=== PATIENT | male | born 1980 | race Native Hawaiian/Other Pacific Islander ===

== ENCOUNTER 2021-04-16 09:51 | Inpatient (IN) | payer MEDICAID, OTHER ==
[~2021-04-16] VITALS: Ht 170.2 cm; Wt 77.1 kg
--- NOTE | 2021-04-16 10:54 | NUR ---
SEEN AND EXAMINED BY .
--- NOTE | 2021-04-16 11:08 | NUR ---
BIB SELF C/O SOB, LOW O2 SAT 67% ON RA AND FEVER X 7 DAYS, COVID +. PT AAOX4, DENIES N/V/D. PT SEEN & EVAL'D BY DR. HAGEN. PLACED ON PLASTIC SURGERY ASSISTANT, SR. PLACED ON O2 NR 100%. WILL CONT TO MONITOR.
--- NOTE | 2021-04-16 11:40 | NUR ---
MOVE SHEET SUBMITTED AND CALLED FOR TELE BED.
[2021-04-16 11:55] LABS: BASOPHILS % (AUTO) 0.1 % (0.0-2.0); EOSINOPHILS % (AUTO) 0.1 % (0.0-6.0); HEMATOCRIT 46 % (39-51); HEMOGLOBIN 14.5 g/dL (13.5-17.5); LYMPHOCYTES # (AUTO) 0.4 K/uL (0.8-4.8); LYMPHOCYTES % (AUTO) 8.3 % (20.0-44.0); MEAN CORPUSCULAR HGB CONC 32 g/dl (31.0-36.0); MEAN CORPUSCULAR VOLUME 64 fL (80-96); MONOCYTES # (AUTO) 0.2 K/uL (0.1-1.30); MONOCYTES % (AUTO) 3.6 % (2.0-12.0); NEUTROPHILS # (AUTO) 4.7 K/uL (1.8-8.9); NEUTROPHILS % (AUTO) 87.9 % (43.0-81.0); PLATELET COUNT (AUTO) 200 K/uL (150-450); RED BLOOD CELL COUNT(AUTO) 7.25 MIL/uL (4.5-6.0); WHITE BLOOD COUNT (AUTO) 5.3 K/uL (4.3-11.0)
[2021-04-16] MEDS ORDERED: DEXAMETHASONE SOD PHOSPHATE 10 MG/ML VIAL IV ONE (12:00)
[2021-04-16 12:16] LABS: D-DIMER 0.9 mg/L(FEU (0.17-0.50)
[2021-04-16 12:21] LABS: CREATINE KINASE, TOTAL 266 U/L (39-308)
[2021-04-16] MEDS ORDERED: DEXAMETHASONE SOD PHOSPHATE 10 MG/ML VIAL ONE (12:29)
[2021-04-16 13:06] LABS: CALCIUM, SERUM 8.3 mg/dL (8.5-10.1); CARBON DIOXIDE 26 mmol/L (21-32); CHLORIDE 91 mmol/L (98-107); GLUCOSE 141 mg/dL (74-106); POTASSIUM 3.7 mmol/L (3.5-5.1); SODIUM SERUM 129 mmol/L (136-145); UREA NITROGEN, BLOOD 14 mg/dL (7-18)
--- NOTE | 2021-04-16 13:14 | NUR ---
[facility] CALLED CLINICAL SPECIALTY REP PAGED.
[2021-04-16 13:18] LABS: ALANINE AMINOTRANSFERASE 112 U/L (12-78); ALKALINE PHOSPHATASE 236 U/L (46-116); ASPARTATE AMINOTRANSFERASE 95 U/L (15-37); BILIRUBIN,TOTAL 0.7 mg/dL (0.2-1.0); TOTAL PROTEIN, SERUM 7.3 g/dL (6.4-8.2)
[2021-04-16] MEDS: CEFTRIAXONE 1 G in IV D5W 50 ML IV SCH ×2 (13:50→16:00)
--- NOTE | 2021-04-16 13:54 | NUR ---
PT AAOX4, VSS. RR EVEN & UNLABORED. DENIES CP, SOB, DIZZINESS, N/V AT THIS TIME. WILL CONT TO MONITOR.
[2021-04-16] MEDS ORDERED: ONDANSETRON 4 MG TAB.RAPDIS SL PRN (14:00)
[2021-04-16] MEDS ORDERED: ACETAMINOPHEN 650 MG/SUPP.RECT RC PRN (14:00)
[2021-04-16] MEDS ORDERED: ALBUTEROL SULFATE 8 GM HFA.AER.AD IH PRN (14:00)
[2021-04-16] MEDS: AZITHROMYCIN 500 MG in IV D5W 250 ML IV SCH (14:37)
[2021-04-16] MEDS ORDERED: CEFTRIAXONE 1GM BAG (ER ONLY) 50 ML IV ONE (15:08)
--- NOTE | 2021-04-16 16:30 | NUR ---
PT RESTING WELL, NAD NOTED AT THIS TIME. WILL CONT TO MONITOR.
[2021-04-16] MEDS ORDERED: APIXABAN 5 MG TABLET PO SCH (17:00)
--- NOTE | 2021-04-16 17:46 | NUR ---
COVID POSITIVE PER LAB
[2021-04-16] MEDS ORDERED: APIXABAN 5 MG TABLET ONE (17:57)
--- NOTE | 2021-04-16 18:29 | NUR ---
PT RR EVEN & UNLABORED. DENIES CP, SOB, DIZZINESS, N/V AT THIS TIME. PT STS " I FEEL BETTER". WILL CONT TO MONITOR..
--- NOTE | 2021-04-16 19:02 | NUR ---
GOT BED 112-1 AFTER 1929
--- NOTE | 2021-04-16 19:58 | NUR ---
RN NOTES RECEIVED REPORT FROM ER NURSE BELIA
[2021-04-16 20:10] VITALS: BP 118/81
--- NOTE | 2021-04-16 20:10 | NUR ---
ADMISSION NOTES ADMITTED A 40Y/O MALE PATIENT FROM ER VIA [facility] WITH CHIEF COMPLAIN OF WORSENING SOB. RAPID TEST POSITIVE, PCR PENDING. PATIENT A/O X4 ABLE TO MAKE NEEDS KNOWN. WITH IV ACCESS AT LAC# 20 PATENT FLUSHES WELL. VITAL SIGNS TAKEN AND RECORDED AFEBRILE. TRANSFER TO BED SAFELY. ON NO REBREATHER MASK AT 15LPM TOLERATING WELL SATING 93%. COMPLETE BODY ASSESSMENT DONE. SKIN INTACT. ALL BELONGINGS CHECKED AND RECORDED. ALL SAFETY MEASURES IN PLACE AT ALL TIMES. BED IN LOWEST POSITION, LOCKED. BED ALARM ARMED. CALL LIGHT WITH IN REACH. CONTINUE TO MONITOR.
--- NOTE | 2021-04-16 20:20 | NUR ---
REPORT GIVEN TO HAO PHIPPS FOR JOANNE
[2021-04-16 20:28] LABS: ABG BASE EXCESS 1.2 mmol/L; ABG OXYGEN SATURATION 91.9 % (92.0-98.5); ABG PCO2 39.4 mmHg (35.0-45.0); ABG PH 7.429 (7.350-7.450); ABG PO2 62.1 mmHg (75.0-100.0); AaDO2 611.5 mmHg; COHb 1.2 % (0.5-1.5); MetHb 0.3 % (0.0-1.5); O2Hb 90.5 % (94.0-97.0); SITE, ABG Left Radial; VENT MODE, BG 15L NRB
--- NOTE | 2021-04-16 20:56 | NUR ---
RN NOTES RECEIVED REPORT TO ER NURSE BELIA
--- NOTE | 2021-04-16 21:30 | NUR ---
RN NOTES RESIDENT COMPLAIN THAT THE HIGH FLOW OXYGEN IS TO STRONG HE CANNOT TOLERATED IT, NOTIFIED RT JENS, RT REDUCED THE SETTING 30LPM AND SATTING AT 95%. CONTINUE TO MONITOR
--- NOTE | 2021-04-16 23:00 | NUR ---
RN NOTES PATIENT COMPLAINT THAT HE CANNOT SLEEP, HEADER MACHINE OPERATOR RHYS MADE AWARE WITH NEW ORDER TEMAZEPAM 7.5 MG, PO HS ONE TIME ONLY NOTED AND CARRIED OUT.
--- NOTE | 2021-04-16 23:17 | NUR ---
RN NOTES TEMAZEPAM 7.5MG GIVEN
[2021-04-16] MEDS ORDERED: TEMAZEPAM 7.5 MG CAPSULE PO ONE (23:30)
[2021-04-17] VITALS: BP 126/84
--- NOTE | 2021-04-17 00:10 | NUR ---
RN NOTES PATIENT STILL COMPLAINING ABOUT THE HI FLOW OXYGEN, PER PATIENT HIS LUNGS IS HURTING WHEN USING THE HI FLOW OXYGEN AND IT FEELS LIKE IT WILL EXPLODE, HE REQUESTING TO HAVE THE NON REBREATHER MASK INSTEAD, HE SAID HE IS DOING OK EARLIER WITH NON REBREATHER MASK, EXPLAINED RISK AND BENEFITS STILL WANT TO CHANGE TO NON REBREATHER MASK, NOTIFIED DIRECTOR MOBILE RHYS, PER DIRECTOR MOBILE OK TO CHANGE TO NON RE BREATHER MASK. RT. MADE AWARE AND CHANGE THE HI FLOW TO NON REBREATHER MASK. WILL CONTINUE TO MONITOR.
[2021-04-17] MEDS: GUAIFENESIN/CODEINE 10 ML UDC PO PRN ×2 (01:05→06:09)
--- NOTE | 2021-04-17 01:10 | NUR ---
RN NOTES ROBITUSSIN WITH CODEINE GIVEN
[2021-04-17 04:00] VITALS: BP 121/80
[2021-04-17] MEDS: ACETAMINOPHEN 325 MG TABLET PO PRN ×2 (05:23→16:48)
--- NOTE | 2021-04-17 05:26 | NUR ---
RN NOTES PATIENT NOTED WITH TEMPERATURE OF 100.4 FAHRENHEIT, COOLING MEASURE PROVIDED, DENIES ANY PAIN, ACETAMINOPHEN GIVEN PER MD'S ORDERED. WILL CONTINUE TO MONITOR
--- NOTE | 2021-04-17 06:13 | NUR ---
RN NOTES ROBITUSSIN WITH CODEINE GIVEN
--- NOTE | 2021-04-17 06:30 | NUR ---
RN NOTES TEMPERATURE RECHECKED AND OBTAINED 98.5 FAHRENHEIT. WILL CONTINUE TO MONITOR
[2021-04-17] MEDS ORDERED: DEXT20TA6 PO (06:52)
[2021-04-17 07:08] LABS: BASOPHILS % (AUTO) 0.1 % (0.0-2.0); HEMATOCRIT 42 % (39-51); HEMOGLOBIN 13.7 g/dL (13.5-17.5); LYMPHOCYTES # (AUTO) 0.5 K/uL (0.8-4.8); LYMPHOCYTES % (AUTO) 9.8 % (20.0-44.0); MEAN CORPUSCULAR HGB CONC 32 g/dl (31.0-36.0); MEAN CORPUSCULAR VOLUME 62 fL (80-96); MONOCYTES # (AUTO) 0.4 K/uL (0.1-1.30); NEUTROPHILS # (AUTO) 3.9 K/uL (1.8-8.9); NEUTROPHILS % (AUTO) 82.1 % (43.0-81.0); PLATELET COUNT (AUTO) 245 K/uL (150-450); RED BLOOD CELL COUNT(AUTO) 6.77 MIL/uL (4.5-6.0); WHITE BLOOD COUNT (AUTO) 4.7 K/uL (4.3-11.0)
--- NOTE | 2021-04-17 07:10 | NUR ---
RN OPENING NOTE RECEIVE REPORT FROM INSULATION ENGINEMAN NURSE. PATIENT IN STABLE CONDITION. WILL FOLLOW UP AM LABS AND DOCTORS ORDERS. PROPER ISOLATION IN PLACE. ALL SAFETY MEASURE IN PLACE. BED ON LOWEST POSITION WITH HO ELEVATED. CALL LIGHT WITHIN REACH. WILL CONTINUE TO MONITOR.
--- NOTE | 2021-04-17 07:15 | NUR ---
RN CLOSING NOTES PATIENT REMAIN STABLE THROUGH OUT THE SHIFT, ON NRB @15LPM, SATTING AT 95%. WITH IV ACCESS AT LAC# 20 PATENT FLUSHES WELL. ALL DUE MEDS GIVEN ORDERED.. ALL SAFETY MEASURES IN PLACE AT ALL TIMES. BED IN LOWEST POSITION, LOCKED. BED ALARM ARMED. CALL LIGHT WITH IN REACH. CONTINUE TO MONITOR.
[2021-04-17 08:00] VITALS: BP 125/76
[2021-04-17] MEDS: DEXAMETHASONE SOD PHOSPHATE 4 MG/ML VIAL IV SCH (08:07)
[2021-04-17] MEDS: APIXABAN 5 MG TABLET PO SCH ×2 (08:08→16:49)
[2021-04-17 08:47] LABS: ALBUMIN 2.6 g/dL (3.4-5.0); BILIRUBIN,TOTAL 0.4 mg/dL (0.2-1.0); CALCIUM, SERUM 7.9 mg/dL (8.5-10.1); CREATININE 0.8 mg/dL (0.6-1.3); POTASSIUM 4.2 mmol/L (3.5-5.1); TOTAL PROTEIN, SERUM 6.8 g/dL (6.4-8.2)
[2021-04-17] MEDS ORDERED: REMDESIVIR (CHARGED) 200 MG, *LOADING DOSE 1 EA in IV NS 0.9% 210 ML IV ONE (10:00)
[2021-04-17 10:29] LABS: C-REACTIVE PROTEIN 11.1 mg/dL (0.0-0.9)
[2021-04-17] MEDS: BENZONATATE 100 MG CAPSULE PO PRN (11:54)
[2021-04-17 12:00] VITALS: BP 125/76
[2021-04-17] MEDS: CEFTRIAXONE 1 G in IV D5W 50 ML IV SCH (13:50)
[2021-04-17] MEDS: AZITHROMYCIN 500 MG in IV D5W 250 ML IV SCH (14:37)
[2021-04-17 16:00] VITALS: BP 120/78
--- NOTE | 2021-04-17 18:53 | NUR ---
RN CLOSING NOTE PATIENT IN STABLE CONDITION. REMAIN ON NON-REBREATHER AT 15L/MIN O2 SAT 94% AND ABOVE AT REST. PERIOTIC CHEST PAIN AND COUGH. ROBITUSSIN WAS D/C AND TESSALON WAS ORDER IN ITS PLACE PER DR. WHITMAN. FAMILY WAS INFORMED REGARDING PATIENT CONDITION. PROPER ISOLATION PRECAUTION IN PLACE. ALL SAFETY MEASURE IN PLACE. BED ON LOWEST POSITION WITH HOB ELEVATED. CALL LIGHT WITHIN REACH. WILL CONTINUE TO MONITOR AND ENDORSED TO INSULATION MANAGER NURSE.
--- NOTE | 2021-04-17 19:15 | NUR ---
RN OPENING NOTES PATIENT RECEIVED ON BED ALERT AND VERBALLY RESPONSIVE, NO SHORTNESS OF BREATH NOTED, NOT IN DISTRESS, DENIES PAIN, ON NRB @15LPM, SATTING AT 95%. WITH IV ACCESS AT LAC# 20 PATENT FLUSHES WELL. ALL SAFETY MEASURES IN PLACE AT ALL TIMES. BED IN LOWEST POSITION, LOCKED. BED ALARM ARMED. CALL LIGHT WITH IN REACH. CONTINUE TO MONITOR.
[2021-04-17 20:00] VITALS: BP 110/58
--- NOTE | 2021-04-17 20:11 | NUR ---
RT pt sat 87% on nrb. pt states having sob. discussed with him about being placed back on hfnc, but pt does not want because he does not like the pressure. notified odessa montague rn. will continue to monitor pt.
--- NOTE | 2021-04-17 20:13 | NUR ---
RT pt sat 87% on nrb. pt states having tightness in chest. discussed with him about being placed back on hfnc, but pt does not want because he does not like the pressure. prefers to be on NRB notified saurav montague. will continue to monitor pt t/o shift.
--- NOTE | 2021-04-17 20:26 | NUR ---
RN NOTES PATIENT NOTED WITH OXYGEN SAT 88% ON NRB, DISCUSSED WITH THE PATIENT THAT HE NEEDS THE HI FLOW OXYGEN, EXPLAINED RISK AND BENEFITS, HE STILLS PREFERS THE NRB, STATING THAT IT HURTS HIS LUNG AND HE CAN'T TOLERATE IT. CHARGE NURSE AWARE AT BEDSIDE.
[2021-04-17] MEDS ORDERED: TEMAZEPAM 7.5 MG CAPSULE PO ONE (22:30)
[2021-04-18] VITALS (15 sets, daily range): BP systolic 120–144; BP diastolic 63–98
[2021-04-18] MEDS: ACETAMINOPHEN 325 MG TABLET PO PRN ×3 (06:21→22:25)
--- NOTE | 2021-04-18 07:26 | NUR ---
RN CLOSING NOTES NO SIGNIFICANT CHANGES THROUGH OUT THE SHIFT, NO SHORTNESS OF BREATH NOTED, NOT IN DISTRESS, DENIES PAIN, ON NRB @15LPM, SATTING AT 95%. WITH IV ACCESS AT LAC# 20 PATENT FLUSHES WELL. ALL DUE MEDS GIVEN ORDERED. ALL SAFETY MEASURES IN PLACE AT ALL TIMES. BED IN LOWEST POSITION, LOCKED. BED ALARM ARMED. CALL LIGHT WITH IN REACH. CONTINUE TO MONITOR.
--- NOTE | 2021-04-18 07:27 | NUR ---
PT IS AWAKE AND ALERT RECEIVED ON 15 LPM NON REBREATHER WITH 78% SPO2, PT ENCOURAGE TO USE HIGH FLOW BECAUSE PT. DOESN'T WANT TO USE HIGH FLOW. PT AGREED TO USE HIGH FLOW WITH PREVIOUS SETTINGS WITH 30 FLOW / 95% FIO2. Addendum: 04/18/21 at 0732 by NAGA BOYD RT Amended: Links added.
--- NOTE | 2021-04-18 07:37 | NUR ---
RN OPENING NOTE RECEIVED PATIENT A/O X 3 , ON NRB @30LPM, 02 SAT AT 95%. WITH IV ACCESS AT LAC# 20 PATENT FLUSHES WELL. NO CURRENT COMPLAINTS OF PAIN . ALL SAFETY MEASURES IN PLACE AT ALL TIMES. BED IN LOWEST POSITION, LOCKED. BED ALARM ARMED. CALL LIGHT WITH IN REACH.
[2021-04-18] MEDS: DEXAMETHASONE SOD PHOSPHATE 4 MG/ML VIAL IV SCH (08:55)
[2021-04-18] MEDS: APIXABAN 5 MG TABLET PO SCH ×2 (08:55→16:00)
[2021-04-18 09:12] LABS: ALBUMIN 2.7 g/dL (3.4-5.0); BILIRUBIN,DIRECT 0.2 mg/dL (0.0-0.2); BILIRUBIN,TOTAL 0.5 mg/dL (0.2-1.0); CALCIUM, SERUM 8.2 mg/dL (8.5-10.1); POTASSIUM 4.3 mmol/L (3.5-5.1); TOTAL PROTEIN, SERUM 7.1 g/dL (6.4-8.2)
[2021-04-18] MEDS ORDERED: REMDESIVIR (CHARGED) 100 MG in IV NS 0.9% 100 ML IV SCH (10:00)
[2021-04-18 10:27] LABS: ABG BASE EXCESS 4.2 mmol/L; ABG OXYGEN SATURATION 87.6 % (92.0-98.5); ABG PCO2 40.2 mmHg (35.0-45.0); ABG PH 7.464 (7.350-7.450); ABG PO2 51.2 mmHg (75.0-100.0); AaDO2 585.5 mmHg; COHb 0.7 % (0.5-1.5); MetHb 0.1 % (0.0-1.5); O2Hb 86.9 % (94.0-97.0); SITE, ABG Right Brachial; VENT MODE, BG high flow 30 L/ 95%
[2021-04-18 10:33] LABS: BASOPHILS % (AUTO) 0.1 % (0.0-2.0); HEMATOCRIT 45 % (39-51); HEMOGLOBIN 14.6 g/dL (13.5-17.5); LYMPHOCYTES # (AUTO) 0.6 K/uL (0.8-4.8); LYMPHOCYTES % (AUTO) 5.8 % (20.0-44.0); MEAN CORPUSCULAR HGB CONC 33 g/dl (31.0-36.0); MEAN CORPUSCULAR VOLUME 63 fL (80-96); MONOCYTES % (AUTO) 10.2 % (2.0-12.0); NEUTROPHILS % (AUTO) 83.9 % (43.0-81.0); RED BLOOD CELL COUNT(AUTO) 7.09 MIL/uL (4.5-6.0); WHITE BLOOD COUNT (AUTO) 9.5 K/uL (4.3-11.0)
--- NOTE | 2021-04-18 10:42 | NUR ---
high flow parameters below chaged per dr. null: 40 L flow 100% fio2 charge nurse aware on changes made. Addendum: 04/18/21 at 1044 by NAGA BOYD RT Amended: Links added.
--- NOTE | 2021-04-18 13:22 | NUR ---
RN NOTES; SPOKE WITH PT SISTER CARMEN [phone]. CARMEN IS AN RN AND WILL BE THE POINT PERSON FOR GIVING PT UPDATE. PT PCP IS DR. LILIAM ESPARZA [phone]. INFORMED DR. AMOS. OF INFORMATION.
--- NOTE | 2021-04-18 13:33 | NUR ---
RN NOTES; PT IV ACCESS IS INFILTRATED. ORDERS FOR ML PLACED. IV MEDICATIONS WILL BE GIVEN LATE PENDING TO PLACEMENT OF ML. WILL CONTINUE TO MONITOR.
[2021-04-18] MEDS: AZITHROMYCIN 250 MG TABLET PO SCH (14:37)
[2021-04-18] MEDS: CEFTRIAXONE 1 G in IV D5W 50 ML IV SCH (14:50)
[2021-04-18] MEDS: REMDESIVIR (CHARGED) 100 MG in IV NS 0.9% 100 ML IV SCH (16:12)
[2021-04-18] MEDS ORDERED: diphenhydrAMINE HCL 50 MG/ML VIAL IV ONE (17:00)
[2021-04-18] MEDS ORDERED: methylPREDNISolone SOD SUCC 40 MG/ML VIAL IV ONE (17:00)
[2021-04-18 17:33] LABS: PLATELET COUNT (AUTO) 140 K/uL (150-450)
[2021-04-18 17:39] LABS: LYMPHOCYTES % (MANUAL) 9 % (16-48); MONOCYTES % (MANUAL) 11 % (0-11.0); NEUTROPHILS % (MANUAL) 79 (42-76)
[2021-04-18 17:40] LABS: REACTIVE LYMPHOCYTES 1 % (0-0)
[2021-04-18] MEDS ORDERED: TOCILIZUMAB 600 MG in IV NS 0.9% 70 ML IV ONE (18:00)
--- NOTE | 2021-04-18 18:47 | NUR ---
RN CLOSING NOTES; PT A/OX4, AMBULATORY. NO C/O PAIN AT THIS TIME. NO DISTRESS NOTED. PT ON DOUBLE SET UP ON NRM AND HIGH FLOW. @ 40L FI02 100. SATING AT 92%. REMDESIVIR #1 GIVEN AND TOLERATED WELL. S/P ACTEMRA AND TOLERATED WELL. ALL MEDICATIONS GIVEN. PT KEPT CLEAN, DRY AND COMFORTABLE. ALL SAFETY MEASURES RENDERED, BED LOCKED IN LOWEST POS. SIDE RAILS X2. NO SIGNIFICANT CHANGES IN PT HEALTH STATUS. WILL ENDORSE TO CUT OFF MACHINE OPERATOR RN. PT IN STABLE CONDITION.
--- NOTE | 2021-04-18 20:10 | NUR ---
ICU/SERVICE DELIVERY MANAGEMENT CONSULTANT WHILE IN ROOM, TO REQUESTED TO HAVE 3 URINALS. PT HAS ONE IN THE BATHROOM, GAVE THESE TO THE PT. PT URINATED IN ONE THEN THREW IT ON THE FLOOR WHERE IT WAS LEAKING. PT DID NOT SAY ANYTHING JUST LOOKED AT ME AND LOOKED AT THE FLOOR. ASKED HOUSE KEEPING TO COME CLEAN UP THE FLOOR. PT WAS ALSO ASKING ABOUT TAKING OFF THE NRB MASK, PT DID THIS AND SATURATION DROPPED TO 84%. TOLD PT THAT HE NEEDS TO KEEP ON THE DOUBLE MASK. PT THEN ASKED HOW LONG WILL HE BE IN THE HOSPITAL. CALL LIGHT WITHIN REACH. NO SOB AT THIS TIME.
--- NOTE | 2021-04-18 22:54 | NUR ---
ICU/LEAD PRESSMAN TYLENOL 650MG PO WAS GIVEN, PT REQUESTED A SLEEPING PILL HOWEVER PT DOESN'T HAVE ONE. AND THIS NONE HAS BEEN GIVEN SINCE 04/16/21 WHICH WAS A ONCE TIME ORDER.
[2021-04-19] VITALS (28 sets, daily range): BP systolic 112–150; BP diastolic 46–100
--- NOTE | 2021-04-19 04:10 | NUR ---
ICU/PROMOTIONS COORDINATOR PT CALLED ON THE CALL LIGHT, THE HIGH FLOW WAS BEEPING DUE TO NO WATER. HOWEVER PT SAID THAT HE TOOK OFF THE HIGH FLOW AND JUST KEPT THE NRB MASK AT 15 LITERS, WITH SATURATION BETWEEN 91-95%. WILL CONTINUE TO MONITOR THIS PT. ALSO GAVE THE PT AN (IS) TO USE AND GAVE INSTRUCTIONS ON HOW TO USE. PT WAS ALSO INSTRUCTED HOW TO PRONE. PT VERBALIZED THE INSTRUCTION.
[2021-04-19 06:09] LABS: BASOPHILS % (AUTO) 0.1 % (0.0-2.0); HEMATOCRIT 46 % (39-51); HEMOGLOBIN 14.9 g/dL (13.5-17.5); LYMPHOCYTES # (AUTO) 0.5 K/uL (0.8-4.8); LYMPHOCYTES % (AUTO) 7.3 % (20.0-44.0); MEAN CORPUSCULAR HGB CONC 32 g/dl (31.0-36.0); MEAN CORPUSCULAR VOLUME 63 fL (80-96); MONOCYTES # (AUTO) 0.9 K/uL (0.1-1.30); MONOCYTES % (AUTO) 13.3 % (2.0-12.0); NEUTROPHILS # (AUTO) 5.4 K/uL (1.8-8.9); NEUTROPHILS % (AUTO) 79.3 % (43.0-81.0); PLATELET COUNT (AUTO) 119 K/uL (150-450); RED BLOOD CELL COUNT(AUTO) 7.39 MIL/uL (4.5-6.0); WHITE BLOOD COUNT (AUTO) 6.9 K/uL (4.3-11.0)
[2021-04-19 06:14] LABS: ALBUMIN 2.9 g/dL (3.4-5.0); BILIRUBIN,DIRECT 0.2 mg/dL (0.0-0.2); BILIRUBIN,TOTAL 0.6 mg/dL (0.2-1.0); CALCIUM, SERUM 8.8 mg/dL (8.5-10.1); CREATININE 0.9 mg/dL (0.6-1.3); POTASSIUM 4.7 mmol/L (3.5-5.1); TOTAL PROTEIN, SERUM 7.3 g/dL (6.4-8.2)
--- NOTE | 2021-04-19 06:39 | NUR ---
ICU/UM SPECIALIST PT IS IN PRONE POSITION, TOOK OFF BP. PT'S SATURATION IS 95% AT THIS TIME. WILL CONTINUE TO MONITOR THIS PT.
--- NOTE | 2021-04-19 07:30 | NUR ---
RN NOTES PT FOUND SITTING ON SIDE OF BED DISPLAYING NO S/S OF ACUTE DISTRESS, PT ENDORSES NO PAIN AND IS BREATHING EVEN AND MINIMAL LABOR ON 15L O2 NRB. R UA ML IS PATIENT AND INTACT. WHEEZING ASCULTATED THROUGHOUT LUNGS, UPPER AND LOWER. VSS, RN WILL MONITOR AND TREAT THROUGHOUT SHIFT. SAFETY MEASURES IN PLACE, BED LOCKED AND IN LOWEST POSITION, CALL LIGHT WITHIN REACH, PT INSTRUCTED TO CALL FOR ASSISTANCE.
[2021-04-19] MEDS: DEXAMETHASONE SOD PHOSPHATE 4 MG/ML VIAL IV SCH (08:39)
[2021-04-19] MEDS: APIXABAN 5 MG TABLET PO SCH ×2 (08:41→16:43)
--- NOTE | 2021-04-19 11:00 | NUR ---
TRANSFER TO ANOTHER UNIT RN CALLED AND GAVE REPORT TO HAO GARCIA. ALL QUESTIONS ANSWERED. PT TRANSPORTED VIA HOSPITAL BED ON MONITOR. NO COMPLICATIONS WHILE MOVING ACROSS HOSP. PT RECIEVED BY JOSE, PT IS A&OX4, AWAKE BUT SLEEPY, BREATHING EVEN AND UNLABORED ON 4L O2 NC AND ENDORSING NO PAIN. NEITHER PERMACATH NOR NEWLY PLACED L CHESTALL PACEMAKER DRESSING HAVE ANY BLOOD, FLUID OR SUBSTANCE. SBAR, REPORT AND CHART GIVEN. PT ENDORSED IN STABLE CONDITION FOR JOANNE. Addendum: 04/19/21 at 1517 by LAURIE GODOY RN IGNORE. WRONG PATIENT!
[2021-04-19] MEDS: ACETAMINOPHEN 325 MG TABLET PO PRN ×2 (11:18→21:58)
[2021-04-19 12:58] LABS: LYMPHOCYTES % (MANUAL) 8 % (16-48); MONOCYTES % (MANUAL) 11 % (0-11.0); NEUTROPHILS % (MANUAL) 81 (42-76)
[2021-04-19] MEDS: AZITHROMYCIN 250 MG TABLET PO SCH (14:19)
[2021-04-19] MEDS: CEFTRIAXONE 1 G in IV D5W 50 ML IV SCH (14:19)
[2021-04-19] MEDS: REMDESIVIR (CHARGED) 100 MG in IV NS 0.9% 100 ML IV SCH (16:43)
--- NOTE | 2021-04-19 19:15 | NUR ---
RN NOTES PT FOUND SITTING ON SIDE OF BED DISPLAYING NO S/S OF ACUTE DISTRESS, PT ENDORSES NO PAIN AND IS BREATHING EVEN AND MINIMAL LABOR ON 15L O2 NRB. R UA ML IS PATIENT AND INTACT. WHEEZING ASCULTATED THROUGHOUT LUNGS, UPPER AND LOWER. SBAR AND REPORT GIVEN TO TESTING ANALYST RN, ALL QUESTIONS ANSWERED. SAFETY MEASURES IN PLACE, BED LOCKED AND IN LOWEST POSITION, CALL LIGHT WITHIN REACH, PT INSTRUCTED TO CALL FOR ASSISTANCE. PT ENDORSED IN STABLE CONDITION FOR JOANNE.
--- NOTE | 2021-04-19 21:36 | NUR ---
RECEIVED PT AWAKE AND ALERT ON NRB. O2 SAT 93%. HFNC IS S/B AT BEDSIDE. CONTINUE TO MONITOR.
[2021-04-19] MEDS ORDERED: ALBUTEROL SULFATE 8 GM HFA.AER.AD ONE (23:46)
[2021-04-20] VITALS (25 sets, daily range): BP systolic 77–159; BP diastolic 29–100
[2021-04-20 05:17] LABS: NEUTROPHILS # (AUTO) 9.7 K/uL (1.8-8.9)
[2021-04-20 05:30] LABS: BASOPHILS % (AUTO) 0.2 % (0.0-2.0); HEMATOCRIT 45 % (39-51); HEMOGLOBIN 14.5 g/dL (13.5-17.5); LYMPHOCYTES # (AUTO) 0.7 K/uL (0.8-4.8); LYMPHOCYTES % (AUTO) 5.9 % (20.0-44.0); MEAN CORPUSCULAR HGB CONC 32 g/dl (31.0-36.0); MEAN CORPUSCULAR VOLUME 63 fL (80-96); MONOCYTES # (AUTO) 1.3 K/uL (0.1-1.30); MONOCYTES % (AUTO) 11.1 % (2.0-12.0); NEUTROPHILS % (AUTO) 82.8 % (43.0-81.0); PLATELET COUNT (AUTO) 103 K/uL (150-450); RED BLOOD CELL COUNT(AUTO) 7.19 MIL/uL (4.5-6.0); WHITE BLOOD COUNT (AUTO) 11.7 K/uL (4.3-11.0)
[2021-04-20 05:51] LABS: ALBUMIN 2.7 g/dL (3.4-5.0); BILIRUBIN,DIRECT 0.2 mg/dL (0.0-0.2); BILIRUBIN,TOTAL 0.6 mg/dL (0.2-1.0); CALCIUM, SERUM 8.2 mg/dL (8.5-10.1); POTASSIUM 4.6 mmol/L (3.5-5.1); TOTAL PROTEIN, SERUM 6.4 g/dL (6.4-8.2)
--- NOTE | 2021-04-20 06:52 | NUR ---
RN CLOSING NOTE PT REMAINS RESTING IN BED, ON NONREBREATHER MASK AT 15L TOLERATING WELL. NO DISTRESS NOTED. PT HAS INHALER ALBUTEROL AT BEDSIDE PT VERBALIZES UNDERSTANDING OF NOTIFYING NURSE WHEN NEEDED, SOB ETC. NO SIGNIFICANT CHANGES IN PT CONDITION OVERNIGHT. PT REC'D CARE PACKAGE FROM FAMILY. EDUCATED PT ON EFFECTS OF MEDICATIONS AND BLOOD SUGAR ALONGSIDE HIGH SUGAR FOOD/CANDY. PT VERBALIZES UNDERSTANDING. PT DENIES PAIN. ALL NEEDS ATTENDED. SAFETY MEASURES IN PLACE. CALL LIGHT WITHIN REACH. Addendum: 04/20/21 at 0657 by DIAN AMOS RN WILL ENDORSE TO DAY SHIFT
--- NOTE | 2021-04-20 07:30 | NUR ---
RN NOTES PT FOUND SITTING ON SIDE OF BED DISPLAYING NO S/S OF ACUTE DISTRESS, PT ENDORSES NO PAIN AND IS BREATHING EVEN AND MINIMAL LABOR ON 15L O2 NRB. R UA ML IS PATIENT AND INTACT. PT USED BEDSIDE COMMODE, RN ADDRESSED BM. PT PROVIDED JAKE ELLIPTA AND TAUGHT HOW TO USE INHAILER. WHEEZING ASCULTATED THROUGHOUT LUNGS, UPPER AND LOWER. VSS, RN WILL MONITOR AND TREAT THROUGHOUT SHIFT. SAFETY MEASURES IN PLACE, BED LOCKED AND IN LOWEST POSITION, CALL LIGHT WITHIN REACH, PT INSTRUCTED TO CALL FOR ASSISTANCE.
[2021-04-20] MEDS: DEXAMETHASONE SOD PHOSPHATE 4 MG/ML VIAL IV SCH (08:18)
[2021-04-20] MEDS: FLUTICASONE/VILANTEROL 1 EACH BLST.W.DEV IH SCH (08:18)
[2021-04-20] MEDS: APIXABAN 5 MG TABLET PO SCH ×2 (08:20→17:34)
[2021-04-20 08:27] LABS: LYMPHOCYTES % (MANUAL) 3 % (16-48); MONOCYTES % (MANUAL) 5 % (0-11.0); NEUTROPHILS % (MANUAL) 92 (42-76)
[2021-04-20] MEDS: ALBUTEROL FS 2.5 MG/0.5 ML VIAL.NEB NEB SCH ×4 (11:46→23:29)
[2021-04-20] MEDS: CEFTRIAXONE 1 G in IV D5W 50 ML IV SCH (14:17)
[2021-04-20] MEDS: AZITHROMYCIN 250 MG TABLET PO SCH (14:17)
[2021-04-20] MEDS: REMDESIVIR (CHARGED) 100 MG in IV NS 0.9% 100 ML IV SCH (16:41)
--- NOTE | 2021-04-20 19:00 | NUR ---
RN NOTE RECEIVED PATIENT IN BED, AO X 4, IN NO S/SX OF ACUTE DISTRESS AT THIS TIME. PATIENT'S BREATHING IS EVEN AND DOES NOT APPEAR LABORED, SATURATION AT 99% ON 15L VIA NON REBREATHER, SR ON THE MONITOR, HR IS 77. NOTED ALEX MIDLINE, PATENT AND FLUSHING WELL, NO S/S OF INFECTION. PATIENT IS CONTINENT AND USES URINAL. PATIENT BED ALARM IS ON. HEAD OF BED ELEVATED. BED IS LOCKED, IN LOWEST POSITION AND SIDE RAILS UP. CALL LIGHT WITHIN REACH OF THE PATIENT. WILL CONTINUE TO MONITOR AND REASSESS FOR ANY CHANGES.
--- NOTE | 2021-04-20 19:05 | NUR ---
RN NOTES PT FOUND SITTING ON SIDE OF BED DISPLAYING NO S/S OF ACUTE DISTRESS, PT ENDORSES NO PAIN AND IS BREATHING EVEN AND MINIMAL LABOR ON 15L O2 NRB. R UA ML IS PATIENT AND INTACT. WHEEZING ASCULTATED THROUGHOUT LUNGS, UPPER AND LOWER. SBAR AND REPORT GIVEN TO GEOPHYSICAL OBSERVER RN, ALL QUESTIONS ANSWERED. SAFETY MEASURES IN PLACE, BED LOCKED AND IN LOWEST POSITION, CALL LIGHT WITHIN REACH, PT INSTRUCTED TO CALL FOR ASSISTANCE. PT ENDORSED IN STABLE CONDITION FOR JOANNE.
[2021-04-20] MEDS: ACETAMINOPHEN 325 MG TABLET PO PRN (19:35)
--- NOTE | 2021-04-20 21:44 | NUR ---
PATIENT'S NEXT OF KIN: CARMEN (SISTER) [phone] ESPARZA [phone] TELEPHONE CALL FROM PATIENT'S SISTER, STATED PATIENT'S PCP DR ESPARZA WANTS TO SPEAK TO ATTENDING MD. WILL RELAY TO AM SHIFT RN. CARMEN ALSO STATED SHE IS PATIENT'S EMERGENCY FLIGHT HOSTESS, AND OUR FILE SHOULD BE UPDATED.
[2021-04-21] VITALS (14 sets, daily range): BP systolic 106–133; BP diastolic 74–91
[2021-04-21] MEDS: ACETAMINOPHEN 325 MG TABLET PO PRN ×3 (03:12→22:02)
[2021-04-21] MEDS: ALBUTEROL FS 2.5 MG/0.5 ML VIAL.NEB NEB SCH ×4 (03:30→14:35)
[2021-04-21 05:45] LABS: BASOPHILS % (AUTO) 0.2 % (0.0-2.0); EOSINOPHILS % (AUTO) 0.6 % (0.0-6.0); HEMATOCRIT 48 % (39-51); HEMOGLOBIN 15.1 g/dL (13.5-17.5); LYMPHOCYTES # (AUTO) 1.1 K/uL (0.8-4.8); LYMPHOCYTES % (AUTO) 7.6 % (20.0-44.0); MEAN CORPUSCULAR HGB CONC 31 g/dl (31.0-36.0); MEAN CORPUSCULAR VOLUME 64 fL (80-96); MONOCYTES # (AUTO) 0.9 K/uL (0.1-1.30); MONOCYTES % (AUTO) 6.4 % (2.0-12.0); NEUTROPHILS # (AUTO) 12.1 K/uL (1.8-8.9); NEUTROPHILS % (AUTO) 85.2 % (43.0-81.0); PLATELET COUNT (AUTO) 100 K/uL (150-450); RED BLOOD CELL COUNT(AUTO) 7.63 MIL/uL (4.5-6.0); WHITE BLOOD COUNT (AUTO) 14.2 K/uL (4.3-11.0)
[2021-04-21 06:15] LABS: ALBUMIN 2.9 g/dL (3.4-5.0); BILIRUBIN,DIRECT 0.2 mg/dL (0.0-0.2); BILIRUBIN,TOTAL 0.7 mg/dL (0.2-1.0); CALCIUM, SERUM 8.2 mg/dL (8.5-10.1); CREATININE 0.9 mg/dL (0.6-1.3); POTASSIUM 4.8 mmol/L (3.5-5.1); TOTAL PROTEIN, SERUM 6.4 g/dL (6.4-8.2)
--- NOTE | 2021-04-21 07:30 | NUR ---
RN NOTES PT FOUND SITTING ON SIDE OF BED DISPLAYING NO S/S OF DISTRESS, PT ENDORSES NO PAIN AND IS BREATHING EVEN AND UNLABORED ON 15L O2 NRB. R UA PICC IS PATIENT AND INTACT. VSS, RN WILL MONITOR AND TREAT THROUGHOUT SHIFT. SAFETY MEASURES IN PLACE, BED LOCKED AND IN LOWEST POSITION, SIDE RAILS UPX2, CALL LIGHT WITHIN REACH, PT INSTRUCTED TO CALL FOR ASSISTANCE.
[2021-04-21] MEDS: APIXABAN 5 MG TABLET PO SCH ×2 (08:02→16:13)
[2021-04-21] MEDS: FLUTICASONE/VILANTEROL 1 EACH BLST.W.DEV IH SCH (08:03)
[2021-04-21] MEDS: DEXAMETHASONE SOD PHOSPHATE 4 MG/ML VIAL IV SCH (08:04)
--- NOTE | 2021-04-21 12:30 | NUR ---
TRANSFER TO TELE PT DOWNGRADED TO TELE, REPORT AND SBAR GIVEN TO RN. PT TRANSFERRED VIA HOSPITAL BED, PT IS A&OX4, BREATHING EVEN AND UNLABORED ON 15L O2 NRB AND ENDORSING NO PAIN. PT ACCOMPANIED BY RN AND APPLICATION SOFTWARE ENGINEER. BELONGINGS REVIEWED. PT ENDORSED IN STABLE CONDITION FOR JOANNE.
--- NOTE | 2021-04-21 14:01 | NUR ---
RN NOTE PATIENT HAVE BEEN TRANSFER FROM ICU. PATIENT ON NON REBREATHER. IN STABLE CONDITION. WILL CONTINUE TO MONITOR.
[2021-04-21] MEDS: CEFTRIAXONE 1 G in IV D5W 50 ML IV SCH (14:16)
[2021-04-21] MEDS: REMDESIVIR (CHARGED) 100 MG in IV NS 0.9% 100 ML IV SCH (15:43)
--- NOTE | 2021-04-21 19:07 | NUR ---
RN CLOSING NOTE PATIENT REMAIN IN STABLE CONDITION WITH NO SIGN OF DISTRESS THROUGH OUT SHIFT. REMAIN ON NON REBREATHER MASK AT 15L/MIN WITH O2 SAT AT 92% and above. ABLE TO AMBULATE TO REST ROOM WITH OWN STRENGTH. PROPER ISOLATION PROTOCOL IN PLACE. ALL SAFETY MEASURE IN PLACE. BED ON LOWEST POSITION WITH HOB ELEVATED AND 3 SIDE RIAL UP. CALL LIGHT WITHIN REACH. WILL CONTINUE TO MONITOR AN ENDORSE TO OB SCRUB TECH NURSE.
--- NOTE | 2021-04-21 19:30 | NUR ---
RN NOTES RECEIVED PT FOR CONTINUITY OF CARE. PATIENT A/OX4 IN NO S/SX OF ACUTE DISTRESS AT THIS TIME; CURRENTLY ON 15L OF 02 VIA NRB MASK; WITH 02 SAT >95% AT THIS TIME. WILL ENSURE SAFETY MEASURES WITHIN THE SHIFT. PATIENT BED ALARM IS ON. HEAD OF BED ELEVATED. BED IS LOCKED, IN LOWEST POSITION AND SIDE RAILS UP. CALL LIGHT WITHIN REACH OF THE PATIENT. APPLICABLE ISOLATION PRECAUTIONS IN PLACE. WILL CONTINUE TO MONITOR AND REASSESS FOR ANY CHANGES AND WILL CARRY OUT ANY ONGOING AND ACTIVE MD ORDER.
[2021-04-21 20:11] LABS: EOSINOPHILS % (MANUAL) 1 % (0-4); LYMPHOCYTES % (MANUAL) 8 % (16-48); MONOCYTES % (MANUAL) 6 % (0-11.0); NEUTROPHILS % (MANUAL) 85 (42-76)
[2021-04-22] VITALS: BP 98/56
--- NOTE | 2021-04-22 02:12 | NUR ---
RN NOTES REPORT GIVEN TO HAO SANTIAGO FOR JOANNE. EQUIPMENT MECHANIC SPECIALIST MADE AWARE.
--- NOTE | 2021-04-22 02:48 | NUR ---
RN NOTE RECEIVED PATIENT IN BED, SLEEPING, AROUSABLE TO NAME AND TOUCH. BREATHING EVEN AND UNLABORED. CURRENTLY ON NON-REBREATHER MASK AT 15L/MIN. TOLERATING WELL WITH OXYGEN SATURATION OF 95 PERCENT WHILE SLEEPING. BED LOW, IN LOCKED POSITION. CALL LIGHT WITHIN REACH.
[2021-04-22 04:00] VITALS: BP 119/74
[2021-04-22] MEDS: BENZONATATE 100 MG CAPSULE PO PRN ×2 (05:23→23:24)
--- NOTE | 2021-04-22 05:23 | NUR ---
RN NOTE PATIENT COMPLAINING OF COUGH. NOTED WITH NON-PRODUCTIVE COUGH AT THIS TIME. ADMINISTERED BENZONATATE 100 MG PER MD ORDER. WILL CONTINUE TO MONITOR. PROVIDED PATIENT WITH FLUIDS. CALL LIGHT WITHIN REACH.
[2021-04-22] MEDS: ALBUTEROL FS 2.5 MG/0.5 ML VIAL.NEB NEB SCH ×5 (06:47→23:30)
--- NOTE | 2021-04-22 06:50 | NUR ---
RN NOTE NO SIGNIFICANT CHANGES DURING SHIFT. PATIENT DENIES FEELING SHORTNESS OF BREATH. PATIENT SLEEPING AT THIS TIME. EASILY AROUSABLE. ALL NEEDS ATTENDED. KEPT CLEAN AND DRY. CALL LIGHT WITHIN REACH.
--- NOTE | 2021-04-22 07:30 | NUR ---
TD RN NOTES PT IN BED, A/OX4, VERBALIZES NEEDS. CURRENTLY ON 15L OF 02 VIA NRB MASK; WITH 02 SAT >93% AT THIS TIME. RESPIRATION UNLABORED. C/O OF TOLERABLE PAIN DUE TO COUGHING, ALEX MIDLINE 18 FLUSHES WELL, SITE CLEAR. POC DISCUSSED. VERBALIZED UNDERSTANDING. REGULAR DIET. BRP, SAFETY MEASURES IN PLACE, ISOLATION PRECAUTION OBSERVED. PATIENT BED ALARM IS ON. HEAD OF BED ELEVATED. BED LOW LOCKED, SIDE RAILS UP. CALL LIGHT WITHIN REACH OF THE PATIENT. WILL CONTINUE TO MONITOR AND REASSESS FOR ANY CHANGES AND WILL CARRY OUT ANY ONGOING AND ACTIVE MD ORDER.
[2021-04-22 08:00] VITALS: BP 102/64
[2021-04-22] MEDS: FLUTICASONE/VILANTEROL 1 EACH BLST.W.DEV IH SCH (09:03)
[2021-04-22] MEDS: DEXAMETHASONE SOD PHOSPHATE 10 MG/ML VIAL IV SCH (09:03)
[2021-04-22] MEDS: APIXABAN 5 MG TABLET PO SCH ×2 (09:03→16:39)
--- NOTE | 2021-04-22 09:30 | NUR ---
TD RN NOTES DUE MEDS GIVEN
--- NOTE | 2021-04-22 10:15 | NUR ---
RN NOTES PER DR. MILLER, TO CHANGE TO 10 LPM SIMPLE MASK AND TITRATE TO 88% AND ABOVE.
--- NOTE | 2021-04-22 11:30 | NUR ---
RN NOTES PT UNABLE TO TOLERATE 10 LITERS O2 NASAL CANULA O2 SAT DROPPED TO BELOW 88%. PLACED BACK TO NRM AT 15L MD AWARE
[2021-04-22 12:00] VITALS: BP 144/89
[2021-04-22] MEDS: CEFTRIAXONE 1 G in IV D5W 50 ML IV SCH (14:27)
[2021-04-22 16:00] VITALS: BP 140/80
[2021-04-22] MEDS: HYDROCODONE/APAP 5/325MG TABLET PO PRN (16:39)
--- NOTE | 2021-04-22 18:49 | NUR ---
TD RN NOTE PT RESTING COMFORTABLY IN BED, PATIENT REMAINS SR ON MONITOR. NO SOB, DENIES PAIN. PM CARE DONE EARLIER. ALL NEEDS ATTENDED. KEPT CLEAN AND DRY. CALL LIGHT WITHIN REACH. WILL ENDORSE TO NEXT SHIFT FOR JOANNE.
--- NOTE | 2021-04-22 19:30 | NUR ---
RT NOTE TX NOT GIVEN DUE TO POSITIVE COVID RESULTS.
[2021-04-22 20:00] VITALS: BP 118/75
--- NOTE | 2021-04-22 20:00 | NUR ---
[place] RN NOTES RECEIVED PTS IN BED AWAKE ALERT X4 . NO S/SX OF ACUTE DISTRESS AT THIS TIME; CURRENTLY ON 15L OF 02 VIA NRB MASK; WITH 02 SAT 95% AT THIS TIME. PTS ON TELE MONITOR AT . WILL ENSURE SAFETY MEASURES WITHIN THE SHIFT. PATIENT BED ALARM IS ON. HEAD OF BED ELEVATED. BED IS LOCKED, IN LOWEST POSITION AND SIDE RAILS UP. CALL LIGHT WITHIN REACH OF THE PATIENT. APPLICABLE ISOLATION PRECAUTIONS IN PLACE. WILL CONTINUE TO MONITOR AND REASSESS FOR ANY CHANGES .V/S STABLE AFEBRILE.
[2021-04-23] VITALS: BP 114/72
[2021-04-23] MEDS: ALBUTEROL FS 2.5 MG/0.5 ML VIAL.NEB NEB SCH ×6 (03:22→23:30)
[2021-04-23] MEDS: HYDROCODONE/APAP 5/325MG TABLET PO PRN ×2 (03:39→17:15)
[2021-04-23 04:00] VITALS: BP 104/66
--- NOTE | 2021-04-23 07:35 | NUR ---
[place] rn notes Pts remains on 15 liters nrb mask , no distress no sob noted , v/s stable afebrile. ST on the monitor all needs meet . endorse to AVIVA RN day shift for continuity of care.
[2021-04-23 07:43] LABS: BASOPHILS % (AUTO) 0.1 % (0.0-2.0); EOSINOPHILS % (AUTO) 1.3 % (0.0-6.0); HEMATOCRIT 48 % (39-51); HEMOGLOBIN 14.7 g/dL (13.5-17.5); LYMPHOCYTES # (AUTO) 1.3 K/uL (0.8-4.8); LYMPHOCYTES % (AUTO) 6.2 % (20.0-44.0); MEAN CORPUSCULAR HGB CONC 31 g/dl (31.0-36.0); MEAN CORPUSCULAR VOLUME 64 fL (80-96); MONOCYTES # (AUTO) 1.3 K/uL (0.1-1.30); MONOCYTES % (AUTO) 6.1 % (2.0-12.0); NEUTROPHILS # (AUTO) 18.8 K/uL (1.8-8.9); NEUTROPHILS % (AUTO) 86.3 % (43.0-81.0); PLATELET COUNT (AUTO) 134 K/uL (150-450); RED BLOOD CELL COUNT(AUTO) 7.47 MIL/uL (4.5-6.0); WHITE BLOOD COUNT (AUTO) 21.8 K/uL (4.3-11.0)
--- NOTE | 2021-04-23 07:52 | NUR ---
pt. is awake and alert received on non rebreather @ 15 lpm o2 flow with 89% spo2. rn notified Addendum: 04/23/21 at 0755 by NAGA BOYD RT Amended: Links added.
[2021-04-23 08:00] VITALS: BP 106/75
[2021-04-23 08:01] LABS: CALCIUM, SERUM 8.7 mg/dL (8.5-10.1); MAGNESIUM 2.4 mg/dL (1.8-2.4); PHOSPHORUS 3.7 mg/dL (2.5-4.9); POTASSIUM 4.5 mmol/L (3.5-5.1)
[2021-04-23] MEDS: APIXABAN 5 MG TABLET PO SCH ×2 (08:59→17:15)
[2021-04-23] MEDS: DEXAMETHASONE SOD PHOSPHATE 10 MG/ML VIAL IV SCH (09:00)
[2021-04-23] MEDS: FLUTICASONE/VILANTEROL 1 EACH BLST.W.DEV IH SCH (09:04)
--- NOTE | 2021-04-23 09:30 | NUR ---
RN NOTES DUE MEDS GIVEN
[2021-04-23 09:56] LABS: LYMPHOCYTES % (MANUAL) 4 % (16-48); MONOCYTES % (MANUAL) 6 % (0-11.0); NEUTROPHILS % (MANUAL) 90 (42-76)
[2021-04-23 12:00] VITALS: BP 119/74
[2021-04-23] MEDS: CEFTRIAXONE 1 G in IV D5W 50 ML IV SCH (14:33)
[2021-04-23 16:00] VITALS: BP 117/72
--- NOTE | 2021-04-23 19:55 | NUR ---
RT NOTE TX NOT GIVEN DUE TO POSITIVE COVID RESULTS.
[2021-04-23 20:00] VITALS: BP 130/80
[2021-04-23] MEDS: DOXYCYCLINE HYCLATE (100 MG) 100 MG TABLET PO SCH (20:55)
[2021-04-23] MEDS ORDERED: CEFEPIME 1 GM VIAL ONE (21:14)
[2021-04-23] MEDS: CEFEPIME 2 GM in IV D5W 100 ML IV SCH (21:25)
[2021-04-24] VITALS: BP 123/76
[2021-04-24] MEDS: HYDROCODONE/APAP 5/325MG TABLET PO PRN ×3 (02:18→22:14)
[2021-04-24] MEDS: ALBUTEROL FS 2.5 MG/0.5 ML VIAL.NEB NEB SCH ×6 (03:30→23:30)
[2021-04-24 04:00] VITALS: BP 114/72
[2021-04-24] MEDS ORDERED: CEFEPIME 1 GM VIAL ONE (04:00)
[2021-04-24] MEDS: CEFEPIME 2 GM in IV D5W 100 ML IV SCH ×4 (04:09→20:00)
--- NOTE | 2021-04-24 07:16 | NUR ---
RN NOTE PATIENT IS IN BED WITH HOB AT SEMI FOWLERS POSITION. PATIENT IS ON 15L NRB WITH NO SIGNS OF LABORED BREATHING. PATIENT IS AOX4. ALEX MIDLINE IS PATENT AND INTACT. BED IS LOCKED IN THE LOWEST POSITION, 3 GUARD RAILS RAISED, CALL ZALDIVAR WITHIN REACH, AND ALL HOSPITAL SAFETY PRECAUTIONS ARE BEING FOLLOWED. WILL CONTINUE TO MONITOR THROUGHOUT SHIFT.
--- NOTE | 2021-04-24 07:20 | NUR ---
PATIENT IN BED, CONT ON NRM AT 15LPM WITH O2 A/O X4,NO SOB/ACUTE DISTRESS NOTED DURING THE NIGHT, DESATURATES WITH MOVEMENT EVEN WHEN TALKING, DESATURATES TO MID 80S, ON TELE MONITOR NSR 90-100S, ALL MEASURES IN PLACE WITH BED IN LOW AND LOCKED, HOB ELEVATED IN SEMI FOWLERS, SIDE RAILS UP X 2, ENDORSED TO EVERARDO FOR JOANNE..
[2021-04-24 08:00] VITALS: BP 115/79
[2021-04-24] MEDS: DEXAMETHASONE SOD PHOSPHATE 10 MG/ML VIAL IV SCH (08:03)
[2021-04-24] MEDS: DOXYCYCLINE HYCLATE (100 MG) 100 MG TABLET PO SCH ×2 (08:03→20:00)
[2021-04-24] MEDS: APIXABAN 5 MG TABLET PO SCH ×2 (08:04→16:28)
[2021-04-24] MEDS: FLUTICASONE/VILANTEROL 1 EACH BLST.W.DEV IH SCH (08:06)
[2021-04-24 09:41] LABS: BASOPHILS % (AUTO) 0.2 % (0.0-2.0); EOSINOPHILS % (AUTO) 1.3 % (0.0-6.0); HEMATOCRIT 46 % (39-51); HEMOGLOBIN 14.2 g/dL (13.5-17.5); LYMPHOCYTES # (AUTO) 1.1 K/uL (0.8-4.8); LYMPHOCYTES % (AUTO) 4.9 % (20.0-44.0); MEAN CORPUSCULAR HGB CONC 31 g/dl (31.0-36.0); MEAN CORPUSCULAR VOLUME 64 fL (80-96); MONOCYTES # (AUTO) 1.7 K/uL (0.1-1.30); MONOCYTES % (AUTO) 7.3 % (2.0-12.0); NEUTROPHILS # (AUTO) 20.3 K/uL (1.8-8.9); NEUTROPHILS % (AUTO) 86.3 % (43.0-81.0); PLATELET COUNT (AUTO) 160 K/uL (150-450); RED BLOOD CELL COUNT(AUTO) 7.27 MIL/uL (4.5-6.0); WHITE BLOOD COUNT (AUTO) 23.5 K/uL (4.3-11.0)
[2021-04-24 11:07] LABS: ALBUMIN 2.8 g/dL (3.4-5.0); BILIRUBIN,TOTAL 0.4 mg/dL (0.2-1.0); CALCIUM, SERUM 7.9 mg/dL (8.5-10.1); CREATININE 0.8 mg/dL (0.6-1.3); POTASSIUM 4.5 mmol/L (3.5-5.1)
[2021-04-24 12:00] VITALS: BP 129/70
[2021-04-24] MEDS ORDERED: LIDOCAINE HCL/PF 1% 30 ML SDV IJ ONE (12:30)
[2021-04-24 12:58] LABS: BAND % (MANUAL) 2 % (0.0-5.0); LYMPHOCYTES % (MANUAL) 3 % (16-48); MONOCYTES % (MANUAL) 4 % (0-11.0); NEUTROPHILS % (MANUAL) 91 (42-76)
[2021-04-24 16:00] VITALS: BP 129/70
--- NOTE | 2021-04-24 18:32 | NUR ---
RN NOTE PATIENT IS IN BED WITH HOB AT SEMI FOWLERS POSITION. PATIENT IS ON 15L NRB WITH NO SIGNS OF LABORED BREATHING. PATIENT IS AOX4. ALEX MIDLINE IS PATENT AND INTACT. BED IS LOCKED IN THE LOWEST POSITION, 3 GUARD RAILS RAISED, CALL ZALDIVAR WITHIN REACH, AND ALL HOSPITAL SAFETY PRECAUTIONS ARE BEING FOLLOWED. PATIENT REMAINED STABLE THROUGHOUT SHIFT.WILL ENDORSE TO ROOM SERVICE BELLHOP RN.
[2021-04-24 20:00] VITALS: BP 121/69
[2021-04-24] MEDS: BENZONATATE 100 MG CAPSULE PO PRN (22:10)
[2021-04-25] VITALS: BP 116/69
[2021-04-25 04:00] VITALS: BP 119/79
[2021-04-25] MEDS: CEFEPIME 2 GM in IV D5W 100 ML IV SCH ×3 (05:17→20:53)
[2021-04-25 06:38] LABS: BASOPHILS # (AUTO) 0.1 K/uL (0.0-0.2); BASOPHILS % (AUTO) 0.2 % (0.0-2.0); EOSINOPHILS % (AUTO) 0.7 % (0.0-6.0); HEMATOCRIT 49 % (39-51); HEMOGLOBIN 15.2 g/dL (13.5-17.5); LYMPHOCYTES # (AUTO) 1.6 K/uL (0.8-4.8); LYMPHOCYTES % (AUTO) 5.9 % (20.0-44.0); MEAN CORPUSCULAR HGB CONC 31 g/dl (31.0-36.0); MEAN CORPUSCULAR VOLUME 64 fL (80-96); MONOCYTES # (AUTO) 2.2 K/uL (0.1-1.30); MONOCYTES % (AUTO) 8.3 % (2.0-12.0); NEUTROPHILS # (AUTO) 22.7 K/uL (1.8-8.9); NEUTROPHILS % (AUTO) 84.9 % (43.0-81.0); PLATELET COUNT (AUTO) 183 K/uL (150-450); RED BLOOD CELL COUNT(AUTO) 7.62 MIL/uL (4.5-6.0); WHITE BLOOD COUNT (AUTO) 26.8 K/uL (4.3-11.0)
--- NOTE | 2021-04-25 07:20 | NUR ---
PATIENT IN BED, CONT ON NRM AT 15LPM WITH O2 A/O X4, WITH O2 >90, NO SOB/ACUTE DISTRESS NOTED DURING THE NIGHT, DESATURATES WITH MOVEMENT, TALK, OR EATING, DESATURATES TO MID 80S, BUT BUMPS UP TO 90S, ALL MEASURES IN PLACE WITH BED IN LOW AND LOCKED, HOB ELEVATED IN SEMI FOWLERS, SIDE RAILS UP X 2, ENDORSED TO VICTOR MANUEL BUI FOR CONTINUATION OF CARE.
[2021-04-25 07:21] LABS: ALBUMIN 3.1 g/dL (3.4-5.0); BILIRUBIN,TOTAL 0.6 mg/dL (0.2-1.0); CALCIUM, SERUM 8.5 mg/dL (8.5-10.1); POTASSIUM 4.2 mmol/L (3.5-5.1); TOTAL PROTEIN, SERUM 6.5 g/dL (6.4-8.2)
[2021-04-25] MEDS: ALBUTEROL FS 2.5 MG/0.5 ML VIAL.NEB NEB SCH ×5 (07:35→23:30)
[2021-04-25 08:00] VITALS: BP 114/70
[2021-04-25] MEDS: APIXABAN 5 MG TABLET PO SCH ×2 (08:48→16:08)
[2021-04-25] MEDS: DEXAMETHASONE SOD PHOSPHATE 10 MG/ML VIAL IV SCH (08:48)
[2021-04-25] MEDS: FLUTICASONE/VILANTEROL 1 EACH BLST.W.DEV IH SCH ×2 (08:48→09:00)
[2021-04-25] MEDS: DOXYCYCLINE HYCLATE (100 MG) 100 MG TABLET PO SCH ×2 (08:48→20:53)
[2021-04-25 10:29] LABS: BAND % (MANUAL) 4 % (0.0-5.0); LYMPHOCYTES % (MANUAL) 5 % (16-48); MONOCYTES % (MANUAL) 7 % (0-11.0); NEUTROPHILS % (MANUAL) 84 (42-76)
[2021-04-25 12:00] VITALS: BP 126/91
[2021-04-25] MEDS: HYDROCODONE/APAP 5/325MG TABLET PO PRN ×2 (12:27→22:13)
[2021-04-25 16:00] VITALS: BP 134/91
--- NOTE | 2021-04-25 18:57 | NUR ---
RN NOTE PATIENT REMAINS IN BED, PATIENT ON 15L O2 NRB MASK WITH SOME LABORED BREATHING. ORDERED FROM MOTORIZED SQUAD CAPTAIN RODARTE TO SWITCH TO HFNC, RT NOTIFIED. ALEX MIDLINE IN PLACE, PATENT. ALL NEEDS ATTENDED DURING SHIFT. BED LOCKED AND IN LOWEST POSITION, CALL LIGHT WITHIN REACH, 3 SIDE RAILS UP. WILL ENDORSE TO PHLEBOTOMY DIRECTOR NURSE.
--- NOTE | 2021-04-25 19:00 | NUR ---
Received patient with sob/acute distress noted, with o2 sat level low 80% consistently, per report awaiting for RT to placed patient in high flow. Called RT again, they will come soon.
--- NOTE | 2021-04-25 19:43 | NUR ---
patient placed by RT in high flow plus non-rebreather mask at this time, 40L 100% FIO2, plus 15l NRM, with saturation 92% at this time, will continue to monitor closely.
--- NOTE | 2021-04-25 19:47 | NUR ---
RT placed pt on high flow, per md order, + nrb. settings: 60L 100%, + 15L. pt sat 92%. tolerating at this time. will continue to monitor. saurav marin, and clari, charge nurse, notified.
[2021-04-25 20:00] VITALS: BP 115/80
[2021-04-26] VITALS: BP 125/68
[2021-04-26] MEDS: ALBUTEROL FS 2.5 MG/0.5 ML VIAL.NEB NEB SCH ×6 (03:30→23:30)
[2021-04-26 04:00] VITALS: BP 133/84
[2021-04-26] MEDS: CEFEPIME 2 GM in IV D5W 100 ML IV SCH ×3 (05:47→21:20)
[2021-04-26 07:35] LABS: BASOPHILS # (AUTO) 0.1 K/uL (0.0-0.2); BASOPHILS % (AUTO) 0.4 % (0.0-2.0); EOSINOPHILS % (AUTO) 0.6 % (0.0-6.0); HEMATOCRIT 47 % (39-51); HEMOGLOBIN 14.9 g/dL (13.5-17.5); LYMPHOCYTES # (AUTO) 1.7 K/uL (0.8-4.8); MEAN CORPUSCULAR HGB CONC 31 g/dl (31.0-36.0); MEAN CORPUSCULAR VOLUME 64 fL (80-96); MONOCYTES # (AUTO) 3.3 K/uL (0.1-1.30); MONOCYTES % (AUTO) 10.2 % (2.0-12.0); NEUTROPHILS # (AUTO) 27.5 K/uL (1.8-8.9); NEUTROPHILS % (AUTO) 83.8 % (43.0-81.0); PLATELET COUNT (AUTO) 195 K/uL (150-450); RED BLOOD CELL COUNT(AUTO) 7.45 MIL/uL (4.5-6.0)
[2021-04-26 07:50] LABS: WHITE BLOOD COUNT (AUTO) 32.9 K/uL (4.3-11.0)
[2021-04-26 08:00] VITALS: BP 135/90
[2021-04-26 08:25] LABS: BILIRUBIN,TOTAL 0.8 mg/dL (0.2-1.0); CALCIUM, SERUM 8.7 mg/dL (8.5-10.1); CREATININE 0.8 mg/dL (0.6-1.3); POTASSIUM 4.3 mmol/L (3.5-5.1); TOTAL PROTEIN, SERUM 6.4 g/dL (6.4-8.2)
[2021-04-26] MEDS: DEXAMETHASONE SOD PHOSPHATE 10 MG/ML VIAL IV SCH (08:36)
[2021-04-26] MEDS: DOXYCYCLINE HYCLATE (100 MG) 100 MG TABLET PO SCH ×2 (08:36→21:21)
[2021-04-26] MEDS: APIXABAN 5 MG TABLET PO SCH ×2 (08:39→16:28)
[2021-04-26] MEDS: FLUTICASONE/VILANTEROL 1 EACH BLST.W.DEV IH SCH (08:40)
[2021-04-26] MEDS: FUROSEMIDE 40 MG/4 ML VIAL IV SCH (10:15)
[2021-04-26 10:25] LABS: ABG BASE EXCESS 3.1 mmol/L; ABG PCO2 39.7 mmHg (35.0-45.0); ABG PH 7.453 (7.350-7.450); AaDO2 621.3 mmHg; COHb 1.2 % (0.5-1.5); MetHb 0.2 % (0.0-1.5); O2Hb 86.8 % (94.0-97.0); SITE, ABG Right Radial; VENT MODE, BG 15L 100% NRB MASK
[2021-04-26 12:00] VITALS: BP 140/86
[2021-04-26 13:14] LABS: BAND % (MANUAL) 1 % (0.0-5.0); EOSINOPHILS % (MANUAL) 2 % (0-4); LYMPHOCYTES % (MANUAL) 5 % (16-48); MONOCYTES % (MANUAL) 10 % (0-11.0); NEUTROPHILS % (MANUAL) 82 (42-76)
[2021-04-26 16:00] VITALS: BP 129/86
--- NOTE | 2021-04-26 19:20 | NUR ---
RN NOTES RECEIVED REPORT FROM MORNING NURSE. PATIENT IN BED A/O X4 ABLE TO MAKE NEEDS KNOWN. ON NON REBREATHER MASK AT 15LPM AND HF @ 40L 100% SATING 90%. PATIENT COMFORTABLE IN BED. WITH ALEX MIDLINE PATENT FLUSHES WELL. VITAL SIGNS TAKEN AND RECORDED. ALL SAFETY MEASURES IN PLACE AT ALL TIMES. CALL LIGHT WITHIN REACH. BED ON LOWEST POSITION AND LOCKED. WILL CLOSELY MONITOR THE PATIENT
--- NOTE | 2021-04-26 19:52 | NUR ---
Patient continue on high flow plus non-rebreather mask at this time, 40L 100% FIO2, plus 15l NRM, with saturation 88-94% during the last 24hrs, whenever he moves, eats or talk desaturates, but bumps back to 88-92%, patient not compliant at time, he removes either NRM or the HF canula, education provided about the importance of keep o2 in placed, and not agree at times, report given to Sarah BUI for continuation of care.
[2021-04-26 20:00] VITALS: BP 139/85
[2021-04-26] MEDS: HYDROCODONE/APAP 5/325MG TABLET PO PRN (21:44)
[2021-04-27] VITALS: BP 113/80
--- NOTE | 2021-04-27 | NUR ---
RT pt sat 85%. per rn, pt keeps removing nrb. pt has been educated about the consequences of removing oxygen delivery methods, but pt keeps removing nrb mask. pt is noncompliant. will contiue to monitor.
[2021-04-27] MEDS: ALBUTEROL FS 2.5 MG/0.5 ML VIAL.NEB NEB SCH ×6 (03:30→23:30)
[2021-04-27 04:00] VITALS: BP 137/82
--- NOTE | 2021-04-27 04:13 | NUR ---
RT HHN TX NOT GIVEN DUE TO PT CURRENTLY COVID POSITIVE. PT HAS NO RESPIRATORY DISTRESS AT THIS TIME. WILL CONTINUE TO MONITOR.
[2021-04-27] MEDS: CEFEPIME 2 GM in IV D5W 100 ML IV SCH ×3 (05:09→20:09)
--- NOTE | 2021-04-27 05:32 | NUR ---
RT pt sat 85% due to eating
--- NOTE | 2021-04-27 06:48 | NUR ---
RN NOTES PATIENT STILL ON HF 40L 100% AND 15L NRM SATING 90%. WITH IV ACCESS AT ALEX MIDLINE PATENT FLUSHES WELL. ALL DUE MEDS GIVEN ORDERED. FREQUENT VISUAL MONITORING RENDERED . ALL SAFETY MEASURES IN PLACE AT ALL TIMES. BED ON LOWEST POSITION AND LOCKED. HOB ELEVATED. CALL LIGHT WITHIN REACH. ENDORSED TO MORNING NURSE.
[2021-04-27 06:49] LABS: ALBUMIN 3.2 g/dL (3.4-5.0); BILIRUBIN,TOTAL 0.6 mg/dL (0.2-1.0); CALCIUM, SERUM 8.6 mg/dL (8.5-10.1); CREATININE 0.9 mg/dL (0.6-1.3); MAGNESIUM 2.5 mg/dL (1.8-2.4); PHOSPHORUS 4.7 mg/dL (2.5-4.9); POTASSIUM 4.1 mmol/L (3.5-5.1); TOTAL PROTEIN, SERUM 6.9 g/dL (6.4-8.2)
--- NOTE | 2021-04-27 07:28 | NUR ---
COMMERCIAL LITIGATION ATTORNEY OPENING NOTES RECEIVED PATIENT IN BED A/O X4 ABLE TO MAKE NEEDS KNOWN. ON NON REBREATHER MASK AT 15LPM AND HF @ 40L 100% SATING 90%. PATIENT COMFORTABLE IN BED. WITH ALEX MIDLINE PATENT FLUSHES WELL. VITAL SIGNS TAKEN AND RECORDED. ALL SAFETY MEASURES IN PLACE AT ALL TIMES. CALL LIGHT WITHIN REACH. BED ON LOWEST POSITION AND LOCKED. WILL CLOSELY MONITOR THE PATIENT.
[2021-04-27 07:45] LABS: BASOPHILS # (AUTO) 0.1 K/uL (0.0-0.2); BASOPHILS % (AUTO) 0.3 % (0.0-2.0); EOSINOPHILS % (AUTO) 0.4 % (0.0-6.0); HEMATOCRIT 51 % (39-51); LYMPHOCYTES # (AUTO) 2.3 K/uL (0.8-4.8); LYMPHOCYTES % (AUTO) 5.4 % (20.0-44.0); MEAN CORPUSCULAR HGB CONC 31 g/dl (31.0-36.0); MEAN CORPUSCULAR VOLUME 64 fL (80-96); MONOCYTES # (AUTO) 4.3 K/uL (0.1-1.30); NEUTROPHILS # (AUTO) 35.8 K/uL (1.8-8.9); NEUTROPHILS % (AUTO) 83.9 % (43.0-81.0); PLATELET COUNT (AUTO) 241 K/uL (150-450); RED BLOOD CELL COUNT(AUTO) 7.99 MIL/uL (4.5-6.0)
[2021-04-27 08:00] VITALS: BP 146/92
[2021-04-27 08:26] LABS: WHITE BLOOD COUNT (AUTO) 42.6 K/uL (4.3-11.0)
[2021-04-27] MEDS: FUROSEMIDE 40 MG/4 ML VIAL IV SCH (08:31)
[2021-04-27] MEDS: DEXAMETHASONE SOD PHOSPHATE 10 MG/ML VIAL IV SCH (08:31)
[2021-04-27] MEDS: DOXYCYCLINE HYCLATE (100 MG) 100 MG TABLET PO SCH ×2 (08:31→20:10)
[2021-04-27] MEDS: APIXABAN 5 MG TABLET PO SCH ×2 (08:32→16:06)
[2021-04-27] MEDS: FLUTICASONE/VILANTEROL 1 EACH BLST.W.DEV IH SCH (08:47)
--- NOTE | 2021-04-27 10:54 | NUR ---
RT NOTE HHN TX NOT GIVEN DUE TO POSITIVE COVID TEST RESULT. SO SOB NOTED. PT SITTING UP UP IN BED HAVING BREAKFAST. Addendum: 04/27/21 at 1055 by NAHOMY MAGDALENO RT Amended: Links added.
[2021-04-27 12:00] VITALS: BP 111/74
[2021-04-27] MEDS ORDERED: IV NS 0.9% 1,000 ML IV ONE (12:00)
[2021-04-27 16:37] VITALS: BP 140/86
[2021-04-27 17:36] LABS: BAND % (MANUAL) 3 % (0.0-5.0); LYMPHOCYTES % (MANUAL) 7 % (16-48); MONOCYTES % (MANUAL) 9 % (0-11.0); NEUTROPHILS % (MANUAL) 81 (42-76)
--- NOTE | 2021-04-27 18:15 | NUR ---
DAYCARE WORKER CLOSING NOTE PATIENT REMAINS IN BED, A/O X4, PATIENT ON 15L O2 NRB MASK AND HIGH FLOW NASAL CANNULA 40L AT 100% FIO2 STILL NOTED WITH SOME LABORED BREATHING SATING BETWEEN 85-90% THROUGHOUT THE SHIFT. ALEX MIDLINE IN PLACE, PATENT AND FLUSHES WELL. NO SIGNS OF CHEST DISCOMFORT. ALL NEEDS ATTENDED TO AND MEDICATIONS ADMINISTERED ORDERED DURING SHIFT. BED LOCKED AND IN LOWEST POSITION, CALL LIGHT WITHIN REACH, 3 SIDE RAILS UP. WILL ENDORSE TO OFFICE LEAD NURSE.
[2021-04-27 20:00] VITALS: BP 130/76
[2021-04-28] VITALS (26 sets, daily range): BP systolic 70–140; BP diastolic 40–89
--- NOTE | 2021-04-28 00:11 | NUR ---
RN NOTE PATIENT HAD RAPID DETERIORATION. WAS NOTIFIED BY COLLET MAKING MACHINE OPERATOR JACOB PATIENT IS ASYSTOLE ON MONITOR. DAWNED ISOLATION PRECAUTIONS AND CHECKED FOR PULSE. FOUND PATIENT PULSELESS. INITIATED ACLS PROTOCOL. CODE BLUE BEGAN @2019 WITH BONDERIZER OPERATOR ED, RT MARY, AND VICTORIA SIEGEL RETAIL EQUIPMENT ASSOCIATE LEADING THE CODE, OTHER RNS, PHARMACIST ZEN PRESENT. UNFORTUNATELY PATIENT WAS PRONOUNCED AT 2052 BY VICTORIA SIEGEL NP. SMOKEHOUSE OPERATOR DR. BLUE MADE AWARE. RN NURSE ORTHOPEDIC ON THE UNIT AND INFORMED. ADMITTING CALLED. [facility] CALLED . [facility] INITIATED. FAMILY WAITING TO VISIT PATIENT AND MADE AWARE. NO MORTUARY AT THIS TIME. PATIENT HAS NOT BEEN TRANSF[place] [facility] [place] [facility] WANTING TO SAY GOODBYE.
[2021-04-28] MEDS ORDERED: CALCIUM CHLORIDE 1,000 MG/10 ML DISP.SYRIN IV ONE (00:23)
[2021-04-28] MEDS: BENZONATATE 100 MG CAPSULE PO PRN (00:53)
[2021-04-28] MEDS: ACETAMINOPHEN 325 MG TABLET PO PRN (02:07)
[2021-04-28] MEDS: ALBUTEROL FS 2.5 MG/0.5 ML VIAL.NEB NEB SCH ×5 (03:21→19:30)
--- NOTE | 2021-04-28 04:00 | NUR ---
RN NOTES, INFORMED DR MIRZA STOREY THAT PATIENT O2 AT THIS TIME, 80-83% CONSISTENTLY, HR 138, RR 28, PATIENT C/O THAT HE IS TIRED, MIRZA REPLIED WITH ORDER FOR STAT ABGS, SHE ALSO WANTS START RESCUE BIPAP, BUT INFORMED THAT WE CANNOT PUT POSITIVE PATIENTS ON BIPAP, SHE REPLIED WITH ORDER TO DO ABGS ONLY.
--- NOTE | 2021-04-28 04:30 | NUR ---
RN NOTES, AWAITING FOR ABGS RESULTS, ANTICIPATING ABGS RESULTS, ASKED PATIENT AT THIS TIME IF HE WANTS INTUBATION IN CASE, ABGS RESULTS TURNS CRITICAL AND DR ORDER INTUBATION, AND PT STRONGLY STATED THAT HE DOES NOT WANT INTUBATION, EXPLAINED RISKS AND BENEFITS, STILL REFUSED, WILL FOLLOW UP WITH MD, AND FAMILY.
--- NOTE | 2021-04-28 04:40 | NUR ---
RT NOTE ABG TAKEN AND CRITICAL RESULTS GIVEN TO BODY MAKER MACHINE SETTER. WILL CONTINUE TO MONITOR
--- NOTE | 2021-04-28 04:53 | NUR ---
RN NOTES, INFORMED DR BLUE RESULTS OF CRITICAL ABG, AND INFORMED HER ALSO THAT PATIENT STRONGLY STATED THAT HE DOES NOT WANT TO BE INTUBATED, PER MD JUST DOCUMENT AND IF HE AGREES CALL ER TO INTUBATE.
--- NOTE | 2021-04-28 05:00 | NUR ---
RN NOTES, CALLED SISTER WOLFE TO AND INFORMED ABOUT THE SITUATION, THE CRITICAL RESULTS AND THAT PT DOESN'T WANT TO BE INTUBATED, INFORMED SISTER THAT IF PATIENT STILL A/O X4 AND TALKING AND DECIDING WHAT HE WANTS, PATIENT HAS RIGHTS, WE CAN NOT INTUBATE, SISTER WILL TALK TO PATIENT.
--- NOTE | 2021-04-28 05:05 | NUR ---
0508 SPOKE WITH PATIENT'S SISTER CARMEN AND EXPLAINED TO HER THAT PATIENT IS STRONGLY REFUSING TO BE INTUBATED WHEN ASKED. PATIENT STATED " IM FINE, MY LUNGS ARE GOOD, I FEEL LIKE I CAN RUN A [employer]ATH[employer], DONT WORRY ABOUT MY SISTER". PATIENT REMAINS ON DUAL OXYGEN AND GETS VERY SOB WHEN TALKING. O2 SATURATION NOTED AT 86-90%. RE ASSURED PATIENT'S SISTER THAT PATIENT IS BEING MONITORED CLOSELY AND WILL GIVE HER A CALL FOR ANY CHANGE OF CONDITION. EXPLAINED TO HER THAT AT THIS POINT WE HAVE TO RESPECT THE PATIENT'S WISH TO NOT BE INTUBATED. PATIENT'S SISTER UNDERSTOOD THE SITUATION AND VERY GRATEFUL FOR THE CARE TOWARDS HER BROTHER. REQUESTED TO NOTIFY HER OF ANY CHANGE OF CONDITION AND SHE SAID THAT IN ANY EVENT THAT HER BROTHER CANNOT DECIDE FOR HIMSELF ANYMORE THAT EVERYTHING MUST BE DONE. PATIENT IS BEING CLOSELY MONITORED AT THIS TIME. HE IS SITTING UP IN HIGH GARZA'S POSITION FOR MAXIMUM OXYGENATION. CALL LIGHT PLACED WITHIN REACH AND INSTRUCTED PATIENT TO CALL FOR ASSISTANCE.
[2021-04-28] MEDS: CEFEPIME 2 GM in IV D5W 100 ML IV SCH (05:50)
--- NOTE | 2021-04-28 06:50 | NUR ---
PATIENT AWAKE, O2 CONTINUE IN LOW-MID 80S, CONTINUE ON HF PLUS NRM, WITH SOB ESPECIALLY WHEN HE TALKS OR MOVES, PATIENT WITH ORDER TO INTUBATE, BUT PATIENT REFUSING TO BE INTUBATED, STATES HE IS FINE, HIS LUNGS GETTING STRONGER, AND HE WANTS TO GO HOME SOON, EXPLAINED AGAIN RISKS AND BENEFITS, BUT PATIENT STILL REFUSING AND STATING THAT HE DOESN'T NEED INTUBATION, THAT HE JUST NEEDS TO SLEEP, ALL SAFETY MEASURES IN PLACE , BED LOCKED AND LOWEST POSITION, HOB ELEVATED TO EXPAND LUNGS FOR MAXIMUM OXYGENATION, CALL LIGHT WITHIN REACH, WILL ENDORSE CONTINUITY OF CARE TO ONCOMING NURSE.
--- NOTE | 2021-04-28 07:10 | NUR ---
PIN INSERTER REGULATOR OPENING NOTES RECEIVED PATIENT IN BED A/O X4 ABLE TO MAKE NEEDS KNOWN. ON NON REBREATHER MASK AT 15LPM AND HF @ 40L 100% SATING 80-83%. PATIENT NOTED WITH LABORED BREATHING. ALEX MIDLINE PATENT FLUSHES WELL. VITAL SIGNS TAKEN AND RECORDED. ALL SAFETY MEASURES IN PLACE AT ALL TIMES. CALL LIGHT WITHIN REACH. BED ON LOWEST POSITION AND LOCKED. WILL CLOSELY MONITOR THE PATIENT.
[2021-04-28 07:42] LABS: BILIRUBIN,TOTAL 0.8 mg/dL (0.2-1.0); CALCIUM, SERUM 8.4 mg/dL (8.5-10.1); CREATININE 0.8 mg/dL (0.6-1.3); MAGNESIUM 2.4 mg/dL (1.8-2.4); POTASSIUM 4.2 mmol/L (3.5-5.1); TOTAL PROTEIN, SERUM 6.5 g/dL (6.4-8.2)
--- NOTE | 2021-04-28 07:45 | NUR ---
walker rn note noted patint is desaturated saturation 75% at this time ans sob ,asked if agree to do intubation agreed,
--- NOTE | 2021-04-28 07:50 | NUR ---
0750 SPOKE WITH PATIENT'S SISTER CARMEN AND MADE HER AWARE THAT PATIENT IS BEING INTUBATED DUE TO SEVERE HYPOXIA. UPDATED HER ON CURRENT CONDITION AND SHE IS VERY APPRECIATIVE OF THE CARE.
--- NOTE | 2021-04-28 07:50 | NUR ---
walker mg note called rapid response, dr filipe mason doctor at bedside for intubation ,rt at bedside Addendum: 04/28/21 at 1027 by SYED CANO RN [address] dent Amidate 20 mg ivp and succinylcholine 100 mg ivp given as ordered
[2021-04-28] MEDS ORDERED: ETOMIDATE 2 MG/ML VIAL ONE (07:51)
--- NOTE | 2021-04-28 08:00 | NUR ---
walker rn note rt at bedside et tube 7,5cm and 23 cm at lip side in placed , transferred to icu by acls protocol by bed , report given to leena mg
--- NOTE | 2021-04-28 08:15 | NUR ---
HAIR ASSISTANT NOTES RECEIVED PT FROM [place], S/P INTUBATION. ETT 7.5/23 CM ON THE LIP. VENT SETTINGS FOLLOWS: AC:20, TV:500, FIO2: 100% AND PEEP 5. SATING 80%. SEVERE AGITATION. BITING ET TUBE. MD ORDERED SEDATION. STARTED DIPRIVAN. ALMODOVAR CATH INSERTED. OGTUBE INSERTED. STAT CXR ORDERED FOR PLACEMENT. BILATERAL SOFT WRIST RESTRAINTS IN PLACE, CHECKED FOR CIRCULATION PER PROTOCOL. SAFETY MEASURES IN PLACE. BED LOCKED AND IN LOWEST POSITION WITH SIDE RAILS UP X3. WILL CONTINUE TO MONITOR.
[2021-04-28] MEDS: PROPOFOL 100 ML IV PRN ×7 (08:41→19:43)
[2021-04-28] MEDS: FLUTICASONE/VILANTEROL 1 EACH BLST.W.DEV IH SCH (09:00)
--- NOTE | 2021-04-28 09:00 | NUR ---
walker rn note called sister pierre notified that patent transferred to icu
--- NOTE | 2021-04-28 09:03 | NUR ---
RAPID RESPONSE CALLED PT IN RESPIRATORY DISTRESS. PT INTUBATED AT 0750 WITH 7.5 ETT 23 @ LIP. INITIAL SETTINGS AC 20 500 100% PEEP 5. BILATERAL BREATH SOUNDS AND COLOR CHANGE ON CO2 DETECTOR NOTED. ALARMS ON AND AUDIBLE. AIRWAY IS SECURE AND PATENT. PT SPO2 AT 84%. RT WILL CONTINUE TO MONITOR.
[2021-04-28] MEDS ORDERED: SUCCINYLCHOLINE CHLORIDE 20 MG/ML VIAL IV ONE (09:25)
[2021-04-28 09:29] LABS: BASOPHILS # (AUTO) 0.1 K/uL (0.0-0.2); BASOPHILS % (AUTO) 0.3 % (0.0-2.0); EOSINOPHILS % (AUTO) 0.5 % (0.0-6.0); HEMATOCRIT 49 % (39-51); HEMOGLOBIN 15.2 g/dL (13.5-17.5); LYMPHOCYTES # (AUTO) 2.6 K/uL (0.8-4.8); LYMPHOCYTES % (AUTO) 5.8 % (20.0-44.0); MEAN CORPUSCULAR HGB CONC 31 g/dl (31.0-36.0); MEAN CORPUSCULAR VOLUME 63 fL (80-96); MONOCYTES # (AUTO) 4.9 K/uL (0.1-1.30); MONOCYTES % (AUTO) 10.9 % (2.0-12.0); NEUTROPHILS # (AUTO) 36.8 K/uL (1.8-8.9); NEUTROPHILS % (AUTO) 82.5 % (43.0-81.0); PLATELET COUNT (AUTO) 223 K/uL (150-450); RED BLOOD CELL COUNT(AUTO) 7.66 MIL/uL (4.5-6.0)
[2021-04-28] MEDS ORDERED: HYDROCODONE/APAP 5/325MG TABLET GT PRN (09:29)
[2021-04-28] MEDS ORDERED: APIXABAN 5 MG TABLET GT SCH (09:29)
[2021-04-28] MEDS ORDERED: DOXYCYCLINE HYCLATE (100 MG) 100 MG TABLET GT SCH (09:29)
[2021-04-28] MEDS ORDERED: PHARMACY TO CHANGE PO MEDS TO GT/NG XX PRN (09:30)
[2021-04-28 09:39] LABS: WHITE BLOOD COUNT (AUTO) 44.6 K/uL (4.3-11.0)
[2021-04-28] MEDS: FUROSEMIDE 40 MG/4 ML VIAL IV SCH (09:51)
--- NOTE | 2021-04-28 09:57 | NUR ---
POST ABG PEEP CHANGED FROM [address] STOUT. Addendum: 04/28/21 at 0958 by EUNICE SEO RT Amended: Links added.
[2021-04-28] MEDS ORDERED: ACETAMINOPHEN 650 MG/20.3 ML UDC GT PRN (10:00)
[2021-04-28] MEDS ORDERED: ACETAMINOPHEN 650 MG/20.3 ML UDC PO PRN (10:00)
[2021-04-28] MEDS ORDERED: PRECEDEX 400 MCG/100 ML BOTTLE 100 ML IV PRN (10:30)
[2021-04-28] MEDS: DEXAMETHASONE SOD PHOSPHATE 10 MG/ML VIAL IV SCH (10:55)
[2021-04-28] MEDS ORDERED: FENTANYL CITRAT IV 2,500 MCG in IV NS 0.9% 200 ML IV PRN (11:30)
--- NOTE | 2021-04-28 11:30 | NUR ---
breathing tx not given , pt on covid precautions.
[2021-04-28 13:31] LABS: BAND % (MANUAL) 5 % (0.0-5.0); NEUTROPHILS % (MANUAL) 78 (42-76)
[2021-04-28 13:32] LABS: LYMPHOCYTES % (MANUAL) 4 % (16-48); MONOCYTES % (MANUAL) 13 % (0-11.0)
[2021-04-28] MEDS ORDERED: VANCOMYCIN 1.25 GM in IV D5W 250 ML IV ONE (14:00)
[2021-04-28] MEDS ORDERED: IV NS 0.9% 1,000 ML IV PRN (17:00)
[2021-04-28] MEDS ORDERED: MEROPENEM 1 G in IV NS 0.9% 100 ML IV SCH (17:00)
--- NOTE | 2021-04-28 19:34 | NUR ---
RN NOTES NO SIGNIFICANT CHANGES THROUGHOUT THE SHIFT. TOLERATING VENT SETTINGS WELL. KEPT CLEAN AND COMFORTABLE. SAFETY MEASURES IN PLACE. ENDORSED TO NIGHT RN FOR JOANNE.
--- NOTE | 2021-04-28 19:35 | NUR ---
RN OPENING NOTE RECEIVED PATIENT IN BED. ON MECHANICAL VENT: ETT 7.5, AC 20 TV 500 PEEP 12. SPO2 IS 79-80%. PATIENT IS SEDATED ON PROPOFOL@100MCG AND FENTANYL @200MCG. NO S/S PAIN NOTED. TELE MONITOR READS SINUS TACHYCARDIA HR 141. IV ACCESS IN ALEX MIDLINE RUNNING NS@100ML/HR, PROPOFOL AND PROPOFOL. TEMP CHECKED 104.3 AXILLARY, WILL GIVE PRN TYLENOL. BED IS LOW AND LOCKED,HOB ELEVATED IN SEMI FOWLERS, SIDE RAILS UP X2. ALARMS ON AND SAFETY PRECAUTION IN PLACE.
--- NOTE | 2021-04-28 19:45 | NUR ---
RN NOTE TYLENOL SUP GIVEN, PACK PACKS PLACED ON PATIENT.
--- NOTE | 2021-04-28 21:22 | NUR ---
RT Initial vent settings AC R20 VT500 100% FI02 PEEP +12. Patient saturation was at 80%. telecommunications administrator and aware. Code blue initiated at 2019, Patient at 2049.
[2021-04-29] MEDS ORDERED: SODIUM BICARBONATE SYR 50 MEQ/50 ML DISP.SYRIN IV ONE (00:23)
[2021-04-29] MEDS ORDERED: EPINEPHRINE (1:10,000) SYRINGE 1 MG/10 ML DISP.SYRIN IVP ONE (00:23)
[2021-04-29] MEDS ORDERED: VANCOMYCIN 1 GM in IV D5W 250 ML IV SCH (02:00)
[2021-04-30 09:13] LABS: ABG BASE EXCESS 2.7 mmol/L; ABG OXYGEN SATURATION 86.4 % (92.0-98.5); ABG PH 7.446 (7.350-7.450); ABG PO2 51.6 mmHg (75.0-100.0); AaDO2 621.4 mmHg; COHb 1.5 % (0.5-1.5); MetHb 0.1 % (0.0-1.5); SITE, ABG Right Radial; VENT MODE, BG HIGH FLOW + NRB
== END 2021-04-29 00:24 | DRG 137 ==
LOC: ER 09:55 → TRANSITION 14:06 → TELE1 19:52 → ICU 04-18 11:05 → TELE1 04-21 13:26 → TELE-TD 04-21 15:35 → ICU 04-28 08:12
PROVIDERS: ADMIT Nurse Practitioner Acute Care; ATTEND Nurse Practitioner Family
PROC: XW033E5 Introduction of Remdesivir Anti-infective into Peripheral Vein, Percutaneous Approach, New Technology Group 5 (ICD-10-PCS; principal; 2021-04-17)
PROC: 05HB33Z Insertion of Infusion Device into Right Basilic Vein, Percutaneous Approach (ICD-10-PCS; 2021-04-18)
PROC: 5A1935Z Respiratory Ventilation, Less than 24 Consecutive Hours (ICD-10-PCS; 2021-04-28)
PROC: 0BH17EZ Insertion of Endotracheal Airway into Trachea, Via Natural or Artificial Opening (ICD-10-PCS; 2021-04-28)
PROC: 5A12012 Performance of Cardiac Output, Single, Manual (ICD-10-PCS; 2021-04-28)
DX: U07.1 COVID-19 (principal); J96.01 Acute respiratory failure with hypoxia; J12.82 Pneumonia due to coronavirus disease 2019; J15.9 Unspecified bacterial pneumonia; D69.6 Thrombocytopenia, unspecified; R65.10 Systemic inflammatory response syndrome (SIRS) of non-infectious origin without acute organ dysfunction; E22.2 Syndrome of inappropriate secretion of antidiuretic hormone; D72.821 Monocytosis (symptomatic); E66.9 Obesity, unspecified; Z79.01 Long term (current) use of anticoagulants
CPT/HCPCS: 31720; 36415; 36600; 71045-TC; 80048-TC; 80053-TC; 80076-TC; 82550-TC; 82728-TC; 82803-TC; 82962-TC; 83605-TC; 83615-TC; 83735-TC; 83880; 84100-TC; 84443-TC; 84478-TC; 84484-TC; 85025-TC; 85378-TC; 85610-TC; 85730-TC; 86140-TC; 86706; 86803; 87040-TC; 87081-TC; 87340; 92950-TC; 93970-TC; 94002-TC; 94760-TC; 94799-TC; 99082-TC; A4216; A6403; G0378; J0171; J0330; J0456; J0692; J0696; J1100; J1200; J1940; J2185; J2920; J3010; J3262; J3370; J3490; J7030; J7050; J7060; U0003